=== PATIENT | female | born 1935 | race Hispanic/Latino ===

== ENCOUNTER 2018-08-25 13:05 | Emergency (ER) | payer MEDICARE, MEDICAID ==
[2018-08-25 15:24] LABS: #Monocytes 0.4 thou/uL (0.11-0.59); #Neutrophils 2.4 thou/uL (1.40-6.50); %Basophils 0.5 % (0.0-1.0); %Eosinophils 1.1 % (0.0-10.0); %Lymphocytes 25.4 % (21.0-51.0); %Monocytes 9.2 % (0.0-10.0); %Neutrophils 63.8 % (42.0-75.0); Hemoglobin 13.1 g/dL (12.0-16.0); Mean Corpuscular HGB CONC 32.7 g/dL (32.0-36.0); Mean Corpuscular Hemoglobin 28.7 pg (27.0-31.0); Mean Corpuscular Volume 87.6 fL (78.0-98.0); Mean Platelet Volume 7.4 fL (7.4-10.4); Platelet Count 176 thou/uL (130-400); RBC Distribution Width 12.5 % (11.5-14.5); Red Blood Cell (RBC) Count 4.57 mill/uL (4.20-5.40); White Blood Cell (WBC) Count 3.8 thou/uL (4.8-10.8)
--- NOTE | 2018-08-25 15:29 | RAD ---
2 VIEW CHEST: Date: 08/25/18 COMPARISON: 12/19/15. INDICATION: Emergency exam for fever, myalgias/body aches. FINDINGS: There is interstitial perihilar prominence bilaterally. The cardiac silhouette is mildly enlarged. No effusion or discrete pneumothorax. There is an oval-shaped subtle density at the superior right para mediastinal region. IMPRESSION: 1. Bilateral perihilar opacities with prominence of the cardiac silhouette. This could relate to sabina ma versus a mild degree of bronchiolitis. 2. Oval-shaped density at the medial right upper lung zone. This likely relates to accentuation of r egional vasculature due to deviated trachea which is shifted to the right by the aortic knob. As a co nservative measure, recommend follow-up with contrast enhanced CT thorax to exclude the possibility o f a medial right apical mass accounting for the opacity. CODE T. POS: [facility]
[2018-08-25 15:43] LABS: ALT (SGPT) 25 U/L (8-55); AST (SGOT) 62 U/L (5-34); Albumin 3.9 g/dL (3.4-4.8); Alkaline Phosphatase 77 U/L (40-150); Anion Gap 16 mmol/L (10-20); BUN (Urea Nitrogen) 24 mg/dL (9.8-20.1); Bilirubin, Total 0.5 mg/dL (0.2-1.2); Calc. Creatinine Clearance 0 mL/min (70-130); Calcium 9.4 mg/dL (7.8-10.44); Carbon Dioxide 22 mmol/L (23-31); Chloride 102 mmol/L (98-107); Estimated GFR-MDRD 70; Glucose 98 mg/dL (83-110); Potassium 3.7 mmol/L (3.5-5.1); Protein, Total 7.9 g/dL (6.0-8.3); Sodium 136 mmol/L (136-145)
[2018-08-25] MEDS ORDERED: ISOVUE-370 76%-LOCM 1 ML ONE (16:31)
--- NOTE | 2018-08-25 17:29 | CT ---
CT CHEST WITH CONTRAST: CLINICAL HISTORY: Fever. Myalgias. Bodyaches. Abnormal radiographic density on preceding chest radiograph. FINDINGS: There is no pulmonary parenchymal mass, suspicious nodule, or effusion. There is mild interstitial p rominence of the lower lung zones bilaterally. Prior radiographic density of the medial right upper hemithorax is attributable to vasculature, which is deviated, along with the tracheal air column, due to the ectatic aortic arch. There is scattered vascular calcification. Coronary artery disease is noted. Incidental note of mild prominence of each renal collecting system, incompletely evaluated. There is incidental note of colonic diverticulosis. IMPRESSION: 1. No pulmonary parenchymal mass. 2. Radiographic opacity at the medial right apex is attributable to regional vasculature. 3. Vascular disease, including coronary artery calcium. 4. Additional details as described above. POS: [facility]
== END 2018-08-25 16:47 | disposition home or self-care (01) ==
LOC: ERS 13:05
DX: J06.9 Acute upper respiratory infection, unspecified (principal); E11.9 Type 2 diabetes mellitus without complications; I10 Essential (primary) hypertension
CPT/HCPCS: 36415; 71046; 71260; 80053; 85025; 87804; Q9966

== ENCOUNTER 2019-12-02 13:34 | Outpatient (CLI) | payer MEDICARE, MEDICAID ==
--- NOTE | 2019-12-02 14:01 | RAD ---
EXAM: 3 views of the left foot HISTORY: Foot pain COMPARISON: None FINDINGS: 3 views of the left foot shows no evidence of acute fracture or dislocation. No soft tissue swelling is seen. Moderate midfoot degenerative changes are present. IMPRESSION: No evidence of acute osseous abnormality.
== END 2019-12-02 13:35 | disposition home or self-care (01) ==
LOC: BICRAD 13:34
PROVIDERS: ATTEND Student in an Organized Health Care Education/Training Program
DX: M79.672 Pain in left foot (principal)

== ENCOUNTER 2021-12-08 20:06 | Emergency (ER) | payer MEDICARE, MEDICAID ==
[2021-12-08 20:41] LABS: #Basophils 0.1 thou/uL (0.0-0.2); #Eosinphils 0.1 thou/uL (0.0-0.7); #Lymphocytes 2.9 thou/uL (1.20-3.40); #Monocytes 0.5 thou/uL (0.11-0.59); #Neutrophils 8.6 thou/uL (1.40-6.50); %Basophils 0.6 % (0.0-1.0); %Eosinophils 0.9 % (0.0-10.0); %Lymphocytes 24.1 % (21.0-51.0); %Monocytes 3.8 % (0.0-10.0); %Neutrophils 70.6 % (42.0-75.0); Hemoglobin 12.8 g/dL (12.0-16.0); Mean Corpuscular HGB CONC 33.4 g/dL (32.0-36.0); Mean Corpuscular Hemoglobin 31.4 pg (27.0-31.0); Mean Corpuscular Volume 94.1 fL (78.0-98.0); Platelet Count 389 thou/uL (130-400); RBC Distribution Width 12.5 % (11.5-14.5); Red Blood Cell (RBC) Count 4.07 mill/uL (4.20-5.40); White Blood Cell (WBC) Count 12.2 thou/uL (4.8-10.8)
[2021-12-08 21:01] LABS: ALT (SGPT) 12 U/L (8-55); AST (SGOT) 22 U/L (5-34); Albumin 3.4 g/dL (3.4-4.8); Alkaline Phosphatase 89 U/L (40-110); Anion Gap 19 mmol/L (10-20); BUN (Urea Nitrogen) 12 mg/dL (9.8-20.1); Bilirubin, Total 0.6 mg/dL (0.2-1.2); Calc. Creatinine Clearance 0 mL/min (70-130); Calcium 9.5 mg/dL (7.8-10.44); Carbon Dioxide 19 mmol/L (23-31); Chloride 101 mmol/L (98-107); Globulin 4.3 g/dL (2.4-3.5); Glucose 108 mg/dL (83-110); Potassium 4.1 mmol/L (3.5-5.1); Protein, Total 7.7 g/dL (5.8-8.1); Sodium 135 mmol/L (136-145)
[2021-12-08] MEDS ORDERED: Ondansetron PF 4 MG/2 ML Vial ONE (22:28)
[2021-12-09 01:19] LABS: Bacteria/HPF None Seen HPF (None Seen); Bilirubin Negative (Negative); Blood, Urine Trace (Negative); Clarity Turbid (Clear); Glucose, Urine (Dipstick) Normal (Negative); Ketone, Urine Trace mg/dL (Negative); Leukocyte 250 Leu/uL (Negative); Nitrite Negative (Negative); Protein, Urine (Dipstick) 70 mg/dL (Neg-Trace); RBC/HPF 0-3 HPF (0-3); Specific Gravity, Urine 1.009 (1.002-1.036); Urobilinogen Normal mg/dL (Less than 2); pH, Urine 6.5 (5.0-9.0)
== END 2021-12-09 02:36 | disposition home or self-care (01) ==
LOC: ERS 20:06
DX: N30.90 Cystitis, unspecified without hematuria (principal); R01.1 Cardiac murmur, unspecified; R53.1 Weakness; I10 Essential (primary) hypertension; E11.9 Type 2 diabetes mellitus without complications
CPT/HCPCS: 36415; 70450; 71045; 80053; 81003; 81015; 84484; 85025; 87086; 93005; 96361; 96374; J2405

== ENCOUNTER 2023-11-29 15:02 | Emergency (ER) | payer MEDICARE, MEDICAID ==
[2023-11-29 16:33] LABS: ALT (SGPT) 8 U/L (8-55); AST (SGOT) 16 U/L (5-34); Albumin 2.8 g/dL (3.4-4.8); Alkaline Phosphatase 102 U/L (40-110); Anion Gap 14 mmol/L (10-20); BUN (Urea Nitrogen) 15 mg/dL (9.8-20.1); Bilirubin, Total 0.3 mg/dL (0.2-1.2); Calc. Creatinine Clearance 0 mL/min (70-130); Carbon Dioxide 22 mmol/L (23-31); Chloride 107 mmol/L (98-107); Estimated GFR 61; Globulin 3.5 g/dL (2.4-3.5); Glucose 158 mg/dL (83-110); Iron 14 ug/dL (50-170); Iron Binding Capacity, Total 374 mcg/dL (265-497); Potassium 4.2 mmol/L (3.5-5.1); Protein, Total 6.3 g/dL (5.8-8.1); Sodium 139 mmol/L (136-145)
[2023-11-29 16:35] LABS: #Basophils 0.04 10x3/uL (0.0-0.2); %Basophils 0.7 % (0.0-1.0); %Eosinophils 3.3 % (0.0-10.0); %Lymphocytes 29.6 % (21.0-51.0); %Monocytes 6.6 % (0.0-10.0); %Neutrophils 59.6 % (42.0-75.0); Hematocrit 22.8 % (36.0-47.0); Hemoglobin 6.7 g/dL (12.0-16.0); Mean Corpuscular HGB CONC 29.4 g/dL (32.0-36.0); Mean Corpuscular Hemoglobin 20.7 pg (27.0-31.0); Mean Corpuscular Volume 70.6 fL (78.0-98.0); Mean Platelet Volume 9.1 fL (7.4-10.4); Platelet Count 189 10x3/uL (130-400); RBC Distribution Width 18.3 % (11.5-14.5); Red Blood Cell (RBC) Count 3.23 mill/uL (4.20-5.40)
[2023-11-29 16:42] LABS: INR-International Normal Ratio 1.1; Prothrombin Time 14.4 sec (12.0-14.7)
[2023-11-29 16:43] LABS: PTT 28.2 sec (22.9-36.1)
[2023-11-29 16:52] LABS: Hypochromia SLIGHT = 6-15 cells HPF (0-5); Microcytosis SLIGHT = 6-15 cells HPF (0-5); Platelet Adequacy Comment Platelets Normal
== END 2023-11-29 21:39 ==
LOC: ERS 15:02
DX: D64.9 Anemia, unspecified (principal); E11.9 Type 2 diabetes mellitus without complications; I10 Essential (primary) hypertension
CPT/HCPCS: 36430; 71045; 80053; 82728; 83540; 83550; 85025; 85610; 85730; 86850; 86900; 86901; 86920; 93005; 99284; P9016; 36415; 82274

== ENCOUNTER 2023-12-18 11:18 | Emergency (ER) | payer MEDICARE, MEDICAID ==
[2023-12-18 13:58] LABS: #Basophils 0.06 10x3/uL (0.0-0.2); %Basophils 0.9 % (0.0-1.0); %Eosinophils 1.6 % (0.0-10.0); %Lymphocytes 27.8 % (21.0-51.0); %Monocytes 6.2 % (0.0-10.0); %Neutrophils 63.2 % (42.0-75.0); Hematocrit 32.4 % (36.0-47.0); Hemoglobin 9.7 g/dL (12.0-16.0); Mean Corpuscular HGB CONC 29.9 g/dL (32.0-36.0); Mean Corpuscular Volume 76.8 fL (78.0-98.0); Mean Platelet Volume 8.8 fL (7.4-10.4); Platelet Count 167 10x3/uL (130-400); RBC Distribution Width 21.2 % (11.5-14.5); Red Blood Cell (RBC) Count 4.22 mill/uL (4.20-5.40)
== END 2023-12-18 15:15 | disposition home or self-care (01) ==
LOC: ERS 11:18
DX: S22.42XA Multiple fractures of ribs, left side, initial encounter for closed fracture (principal); I10 Essential (primary) hypertension; E11.9 Type 2 diabetes mellitus without complications; W19.XXXA Unspecified fall, initial encounter
CPT/HCPCS: 36415; 85025; 99284

== ENCOUNTER 2024-07-22 17:03 | Inpatient (IN) | payer MEDICARE, MEDICAID ==
[~2024-07-22 17:03] MED LIST: Iopamidol-370 76% 500 ML MDV (1 ML CHARGE) ONE
[2024-07-22 17:44] LABS: #Basophils 0.09 10x3/uL (0.0-0.2); %Basophils 0.9 % (0.0-1.0); %Eosinophils 2.5 % (0.0-10.0); %Lymphocytes 39.3 % (21.0-51.0); %Monocytes 5.4 % (0.0-10.0); %Neutrophils 51.8 % (42.0-75.0); Hematocrit 30.6 % (36.0-47.0); Hemoglobin 9.5 g/dL (12.0-16.0); Mean Corpuscular Hemoglobin 27.5 pg (27.0-31.0); Mean Corpuscular Volume 88.4 fL (78.0-98.0); Mean Platelet Volume 9.2 fL (7.4-10.4); Platelet Count 247 10x3/uL (130-400); RBC Distribution Width 16.4 % (11.5-14.5); Red Blood Cell (RBC) Count 3.46 mill/uL (4.20-5.40)
[2024-07-22] MEDS ORDERED: Ondansetron PF 4 MG/2 ML Vial ONE (18:08)
[2024-07-22 18:13] LABS: ALT (SGPT) 14 U/L (Less than 34); AST (SGOT) 41 U/L (11-34); Albumin 2.9 g/dL (3.1-4.5); Alkaline Phosphatase 106 U/L (40-110); Anion Gap 13 mmol/L (10-20); BUN (Urea Nitrogen) 54 mg/dL (9.8-20.1); Bilirubin, Total 0.5 mg/dL (0.3-1.2); Calc. Creatinine Clearance 0 mL/min (70-130); Calcium 10.1 mg/dL (7.8-10.44); Carbon Dioxide 24 mmol/L (23-31); Chloride 104 mmol/L (98-107); Estimated GFR 38; Globulin 4.2 g/dL (2.4-3.5); Glucose 144 mg/dL (83-110); Potassium 4.1 mmol/L (3.5-5.1); Protein, Total 7.1 g/dL (5.8-8.1); Sodium 137 mmol/L (136-145)
[2024-07-22 18:16] LABS: Troponin I 0.014 ng/mL (< 0.028)
[2024-07-22 18:25] LABS: Bacteria/HPF None Seen HPF (None Seen); Bilirubin Negative (Negative); Blood, Urine 3+ (Negative); CAUTI Indications for Culture Pelvic or flank pain; Clarity Turbid (Clear); Glucose, Urine (Dipstick) Normal (Negative); Ketone, Urine Negative (Negative); Leukocyte 500 Leu/uL (Negative); Nitrite Negative (Negative); Protein, Urine (Dipstick) 50 mg/dL (Neg-Trace); RBC/HPF Greater than 50 HPF (0-3); Specific Gravity, Urine 1.015 (1.002-1.036); Squamous Epithelial 0-3 HPF (0-3); Transitional Epithelial 0-3 HPF (None Seen); Urobilinogen Normal mg/dL (Less than 2); WBC/HPF Greater than 50 HPF (0-3)
[2024-07-22 18:35] LABS: Urine Culture Reflex Yes Yes
[2024-07-22] MEDS ORDERED: Sodium Chloride 0.9% 100 ML ONE (20:33)
[2024-07-22] MEDS ORDERED: cefTRIAXone (ROCEPHIN) 1 GM VIAL ONE (20:34)
[2024-07-22] MEDS ORDERED: Ondansetron ODT 4 MG TAB SL PRN (21:15)
[2024-07-22] MEDS ORDERED: Acetaminophen 325 MG TAB PO PRN (21:15)
[2024-07-22] MEDS ORDERED: Ondansetron PF 4 MG/2 ML Vial IVP PRN ×2 (21:15→22:11)
[2024-07-22] MEDS ORDERED: Senokot S 8.6-50 MG TAB PO PRN (22:06)
[2024-07-22] MEDS ORDERED: Bisacodyl 5 MG TAB PO PRN (22:06)
[2024-07-22] MEDS ORDERED: Bisacodyl 10 MG SUPP PR PRN (22:06)
[2024-07-22 22:09] VITALS: BMI 19.0
[2024-07-22] MEDS ORDERED: Dextrose 5%-Lactated Ringers 1,000 ML IV SCH (22:15)
[2024-07-22] MEDS: cefTRIAXone\\ROCEPHIN 1 GM in Sodium Chloride 0.9% 100 ML IVPB SCH (22:31)
[2024-07-22] MEDS: Fleet Saline Enema 133 ML BOT PR SCH (22:32)
[2024-07-22] MEDS: Polyethylene Glycol 3350 17 GM Packet PO SCH (22:41)
[2024-07-22] MEDS: Dextrose 5 % And 0.9 % NaCl 1,000 ML IV SCH (23:28)
[2024-07-23 06:17] LABS: #Basophils 0.03 10x3/uL (0.0-0.2); %Basophils 0.6 % (0.0-1.0); %Eosinophils 2.5 % (0.0-10.0); %Lymphocytes 39.3 % (21.0-51.0); %Monocytes 7.6 % (0.0-10.0); %Neutrophils 49.8 % (42.0-75.0); Hematocrit 23.7 % (36.0-47.0); Hemoglobin 7.5 g/dL (12.0-16.0); Mean Corpuscular HGB CONC 31.6 g/dL (32.0-36.0); Mean Corpuscular Hemoglobin 28.3 pg (27.0-31.0); Mean Corpuscular Volume 89.4 fL (78.0-98.0); Mean Platelet Volume 9.6 fL (7.4-10.4); Platelet Count 156 10x3/uL (130-400); RBC Distribution Width 16.4 % (11.5-14.5); Red Blood Cell (RBC) Count 2.65 mill/uL (4.20-5.40)
[2024-07-23 06:44] LABS: Anion Gap 9 mmol/L (10-20); BUN (Urea Nitrogen) 42 mg/dL (9.8-20.1); Calc. Creatinine Clearance 24 mL/min (70-130); Calcium 8.7 mg/dL (7.8-10.44); Carbon Dioxide 22 mmol/L (23-31); Chloride 111 mmol/L (98-107); Estimated GFR 49; Glucose 122 mg/dL (83-110); Potassium 4.1 mmol/L (3.5-5.1); Sodium 138 mmol/L (136-145)
[2024-07-23] MEDS: Amlodipine 5 MG TAB PO SCH (08:45)
[2024-07-23] MEDS: Enoxaparin 30 MG (0.3 mL) SYRINGE SC SCH (08:46)
[2024-07-23] MEDS: Polyethylene Glycol 3350 17 GM Packet PO SCH (08:46)
[2024-07-23] MEDS: Losartan 25 MG TAB PO SCH (08:46)
[2024-07-23 10:04] VITALS: BMI 19.0
[2024-07-23] MEDS: Magnesium Citrate 300 ML BOT PO SCH (12:30)
[2024-07-24 07:02] LABS: #Basophils 0.03 10x3/uL (0.0-0.2); %Basophils 0.7 % (0.0-1.0); %Eosinophils 4.6 % (0.0-10.0); %Lymphocytes 45.9 % (21.0-51.0); %Neutrophils 40.6 % (42.0-75.0); Hematocrit 23.5 % (36.0-47.0); Hemoglobin 7.3 g/dL (12.0-16.0); Mean Corpuscular HGB CONC 31.1 g/dL (32.0-36.0); Mean Corpuscular Hemoglobin 28.2 pg (27.0-31.0); Mean Corpuscular Volume 90.7 fL (78.0-98.0); Mean Platelet Volume 9.3 fL (7.4-10.4); Platelet Count 136 10x3/uL (130-400); RBC Distribution Width 16.2 % (11.5-14.5); Red Blood Cell (RBC) Count 2.59 mill/uL (4.20-5.40)
[2024-07-24 07:14] LABS: Anion Gap 9 mmol/L (10-20); BUN (Urea Nitrogen) 34 mg/dL (9.8-20.1); Calc. Creatinine Clearance 30 mL/min (70-130); Calcium 8.1 mg/dL (7.8-10.44); Carbon Dioxide 22 mmol/L (23-31); Chloride 115 mmol/L (98-107); Estimated GFR 63; Glucose 97 mg/dL (83-110); Sodium 142 mmol/L (136-145)
[2024-07-24] MEDS: Dronabinol 2.5 MG CAP PO SCH (09:14)
[2024-07-24] MEDS: Famotidine/PF 20 mg/2ml Vial SLOW IVP SCH ×2 (11:08→20:11)
[2024-07-24] MEDS: Ibuprofen 800 MG TAB PO PRN (11:08)
[2024-07-24] MEDS: Losartan 25 MG TAB PO SCH (11:08)
[2024-07-25 07:16] LABS: #Basophils 0.04 10x3/uL (0.0-0.2); %Eosinophils 4.6 % (0.0-10.0); %Lymphocytes 34.8 % (21.0-51.0); %Monocytes 7.6 % (0.0-10.0); Hematocrit 23.5 % (36.0-47.0); Hemoglobin 7.1 g/dL (12.0-16.0); Mean Corpuscular HGB CONC 30.2 g/dL (32.0-36.0); Mean Corpuscular Hemoglobin 27.8 pg (27.0-31.0); Mean Corpuscular Volume 92.2 fL (78.0-98.0); Mean Platelet Volume 9.8 fL (7.4-10.4); Platelet Count 129 10x3/uL (130-400); RBC Distribution Width 16.1 % (11.5-14.5); Red Blood Cell (RBC) Count 2.55 mill/uL (4.20-5.40)
[2024-07-25 07:33] LABS: Anion Gap 8 mmol/L (10-20); BUN (Urea Nitrogen) 36 mg/dL (9.8-20.1); Calc. Creatinine Clearance 30 mL/min (70-130); Calcium 8.1 mg/dL (7.8-10.44); Carbon Dioxide 22 mmol/L (23-31); Chloride 112 mmol/L (98-107); Estimated GFR 61; Glucose 107 mg/dL (83-110); Potassium 4.3 mmol/L (3.5-5.1); Sodium 138 mmol/L (136-145)
[2024-07-25 07:47] VITALS: BP 126/69; TEMP 98.5
== END 2024-07-25 11:24 | disposition home health service (06) | DRG 683 ==
LOC: ERS 17:03 → INTOOBSV 20:58 → T4-B 20:58 → OBSVTOIN 07-23 11:01
PROVIDERS: ADMIT Family Medicine; ATTEND Family Medicine
DX: N17.9 Acute kidney failure, unspecified (principal); E44.0 Moderate protein-calorie malnutrition; N39.0 Urinary tract infection, site not specified; Z68.1 Body mass index [BMI] 19.9 or less, adult; K76.6 Portal hypertension; K52.9 Noninfective gastroenteritis and colitis, unspecified; K59.00 Constipation, unspecified; D64.9 Anemia, unspecified; R62.7 Adult failure to thrive; E11.9 Type 2 diabetes mellitus without complications; I10 Essential (primary) hypertension; Z66 Do not resuscitate; F32.A Depression, unspecified; Z98.890 Other specified postprocedural states; Z88.5 Allergy status to narcotic agent; Z88.8 Allergy status to other drugs, medicaments and biological substances; R53.81 Other malaise; K74.60 Unspecified cirrhosis of liver
CPT/HCPCS: 36415; 36416; 70450; 71045; 74177; 80048; 80053; 81001; 83605; 84484; 85025; 87040; 87077; 87086; 87149; 87186; 87428; 93005; 96361; 96372; 96374; 96375; G0378; J0696; J1650; J2405; J3490; J7042; Q0167; Q9967